=== PATIENT | male | born 1990 | race African-American/Black ===

== ENCOUNTER 2016-09-29 16:39 | Emergency (ER) | payer MEDICARE ==
[~2016-09-29] VITALS: Ht 182.9 cm; Wt 82.0 kg
[2016-09-29] MEDS ORDERED: IBUPROFEN 600MG TABLET PO ONE (20:15)
[2016-09-29] MEDS ORDERED: PENICILLIN G BENZATHINE 2,400,000 UNITS/4ML SYR IM ONE (20:15)
[2016-09-29 20:25] VITALS: BP 121/62
[2016-09-29] MEDS: PENICILLIN G BENZATHINE 1,200,000 UNITS/2ML SYR IM NR ×2 (20:57→21:10)
[2016-10-03 10:07] LABS: CHLAMYDIA TRACHOMATIS NAA Negative (Negative); NEISSERIA GONORRHOEAE NAA Negative (Negative)
== END 2016-09-29 22:10 | disposition home or self-care (01) ==
LOC: ER 20:58
DX: A51.0 Primary genital syphilis (principal); Z11.3 Encounter for screening for infections with a predominantly sexual mode of transmission; F17.200 Nicotine dependence, unspecified, uncomplicated; F12.10 Cannabis abuse, uncomplicated; Z91.011 Allergy to milk products
CPT/HCPCS: 86592; 86593; 86780; 87186; 87491; 87591; 96372; 99284; J0561; Z7610

== ENCOUNTER 2017-02-07 11:53 | Emergency (ER) | payer MEDICARE ==
[~2017-02-07] VITALS: Ht 182.9 cm; Wt 68.0 kg
[2017-02-07 12:06] VITALS: BP 138/82
[2017-02-07] MEDS ORDERED: TETANUS AND DIPHTHERIA TOX/PF 0.5ML SYR (ADULT) IM ONE (15:00)
[2017-02-07] MEDS ORDERED: TETANUS, DIPHTHERIA, PERTUSSIS VAC/PF 0.5ML (>7YR OLD) IM ONE (15:15)
== END 2017-02-07 15:39 | disposition home or self-care (01) ==
LOC: ER 12:12
DX: S61.411A Laceration without foreign body of right hand, initial encounter (principal); F12.10 Cannabis abuse, uncomplicated; F17.200 Nicotine dependence, unspecified, uncomplicated; Z91.011 Allergy to milk products; X83.8XXA Intentional self-harm by other specified means, initial encounter; Y93.89 Activity, other specified; Y92.89 Other specified places as the place of occurrence of the external cause; Y99.8 Other external cause status
CPT/HCPCS: 12001; 73130; 90471; 99284; A4217; 90714